=== PATIENT | male | born 1955 | race Caucasian/White ===

== ENCOUNTER 2024-06-03 21:02 | Emergency (ER) | payer BC, MEDICARE ==
[~2024-06-03] VITALS: Ht 182.9 cm; Wt 83.9 kg
[2024-06-04 00:15] VITALS: BP 159/71; TEMP 98.1; O2SAT 99
== END 2024-06-04 00:15 | disposition home or self-care (01) ==
LOC: ER 21:18
DX: S90.02XA Contusion of left ankle, initial encounter (principal); R60.0 Localized edema; Z85.828 Personal history of other malignant neoplasm of skin; W01.0XXA Fall on same level from slipping, tripping and stumbling without subsequent striking against object, initial encounter; Y93.01 Activity, walking, marching and hiking; Y92.89 Other specified places as the place of occurrence of the external cause; Y99.8 Other external cause status
CPT/HCPCS: 73590-TC